=== PATIENT | male | born 1940 | race Two or more races ===

== ENCOUNTER 2024-06-20 19:47 | Inpatient (IN) | payer OTHER ==
[~2024-06-20] VITALS: Ht 170.2 cm; Wt 83.0 kg
[~2024-06-20 19:47] MED LIST: LOSA-533 PO
[2024-06-20 20:23] LABS: Basophils # (auto) 0 10 ^3/uL (0-0.2); Basophils % (auto) 0.7 % (0.0-2.0); Eosinophils # (auto) 0.3 10 ^3/uL (0-0.8); Eosinophils % (auto) 4.7 % (0.0-7.0); Hematocrit 39.9 % (41.0-53.0); Hemoglobin 13.7 g/dL (13.5-17.5); Lymphocytes % (auto) 14.4 % (10.0-50.0); Mean Corpuscular Hemoglobin 33.9 pg (28.0-32.0); Mean Corpuscular Hgb Conc. 34.4 g/dL (32.0-36.0); Mean Corpuscular Volume 98.7 fL (80.0-100.0); Monocytes # (auto) 0.6 10 ^3/uL (0-1.3); Monocytes % (auto) 9.1 % (0.0-12.0); Neutrophils # (auto) 4.8 10 ^3/uL (1.6-8.6); Neutrophils % (auto) 71.1 % (37.0-80.0); Nucleated Red Blood Cells % 0.1 %; Platelet Count (auto) 204 10^3/uL (140-450); Red Blood Cells 4.05 10^6/uL (4.5-5.90); Red Cell Distribution Width 13.1 % (11.8-14.3); White Blood Cell 6.8 10^3/uL (4.4-10.8)
--- NOTE | 2024-06-20 20:32 | DVH ---
CHEST RADIOGRAPH Indication:syncope Technique: Single frontal view of the chest was obtained Comparison: None FINDINGS: Lines and Tubes: None Lungs: No focal consolidation. Pleura: No effusion. No pneumothorax. Cardiomediastinal contours: Mild cardiomegaly. Bones: No acute osseous abnormality. IMPRESSION: No acute cardiopulmonary disease.
[2024-06-20 20:44] LABS: Alanine Aminotransferase 14 U/L (7-40); Albumin 4.4 g/dL (3.2-4.8); Alkaline Phosphatase 60 U/L (46-116); Anion Gap 7 (5-15); Aspartate Aminotransferase 10 U/L (13-40); BUN/Creatinine Ratio 8.1 (10.0-20.0); Bilirubin, Total 0.4 mg/dL (0.2-1.0); Blood Urea Nitrogen 17 mg/dL (9-23); Carbon Dioxide 23 mmol/L (20-31); Chloride 108 mmol/L (98-107); Glucose 103 mg/dL (74-106); Potassium 3.9 mmol/L (3.5-5.1); Sodium 138 mmol/L (136-145); Total Protein 6.7 g/dL (5.7-8.2)
[2024-06-20 20:55] LABS: Urine Bacteria None Seen /hpf (None Seen)
[2024-06-20 20:57] VITALS: PULSE 50; RESP 14; O2SAT 96
[2024-06-20 21:16] LABS: Urine Blood Negative /uL (Negative); Urine Clarity Clear (Clear); Urine Color Light-Yellow (Yellow); Urine Protein, UAD 2+ (Negative); Urine Specific Gravity 1.013 (1.001-1.035); Urine Urobilinogen Normal (Negative); Urine WBC <1 /hpf (0 - 3)
--- NOTE | 2024-06-20 22:05 | ED.PDOC ---
History of Present Illness HPI Comments 84-year-old male complaining of generalized weakness. Patient states he was in his garage when he he was working by his car and he bent down. States he had a hard time getting up due to feeling weak. Called EMS. EMS came out and states they noticed his heart rate was dropping into the 40s. Patient states typically his heart rate is in the 60s 70s. Patient denies any prior heart problems. Patient states feeling okay during the exam but does still feel mildly weak. No dizziness no headaches. Chief Complaint: General Weakness Time Seen by MD: 19:52 Reviewed Notes: Nurses Notes Allergies: Coded Allergies: NO KNOWN ALLERGIES (Unverified , 06/20/24) Information Source: Patient, Emergency Med Personnel Mode of Arrival: EMS Past Medical History PAST MEDICAL HISTORY: Denies Surgical History: Denies all surgeries Constitutional: denies: chills, diaphoresis, fatigue, fever, malaise, sweats, weakness, others EENTM: denies: blurred vision, double vision, ear bleeding, ear discharge, ear drainage, ear pain, ear ringing, eye pain, eye redness, hearing loss, mouth pain, mouth swelling, nasal discharge, nose bleeding, nose congestion, nose pain, photophobia, tearing, throat pain, throat swelling, voice changes, others Respiratory: denies: cough, hemoptysis, orthopnea, SOB at rest, shortness of breath, SOB with excertion, stridor, wheezing, others Cardiovascular: reports: irregular heart beat; denies: chest pain, dizzy spells, diaphoresis, Dyspnea on exertion, edema, left arm pain, lightheadedness, palpitations, PND, syncope, others Gastrointestinal: denies: abdomen distended, abdominal pain, blood streaked bowels, constipated, diarrhea, dysphagia, difficulty swallowing, hematemesis, melena, nausea, poor appetite, poor fluid intake, rectal bleeding, rectal pain, vomiting, others Genitourinary: denies: burning, dysuria, flank pain, frequency, hematuria, incontinence, penile discharge, penile sore, pain, testicle pain, testicle swelling, urgency, others Neurological: denies: dizziness, fainting, headache, left sided numbness, left sided weakness, numbness, paresthesia, pre-existing deficit, right sided numbness, right sided weakness, seizure, speech problems, tingling, tremors, weakness, others Musculoskeletal: denies: back pain, gout, joint pain, joint swelling, muscle pain, muscle stiffness, neck pain, others Integumetry: denies: bruises, change in color, change in hair/nails, dryness, laceration, lesions, lumps, rash, wounds, others Allergic/Immunocompromised: denies: Difficulty Healing, Frequent Infections, Hives, Itching, others Physical Exam General Appearance: No Apparent Distress, Normal HEENT: Normal ENT Inspection, Pharynx Normal, TMs Normal Neck: Full Range of Motion, Non-Tender, Normal, Normal Inspection Respiratory: Chest Non-Tender, Lungs Clear, No Accessory Muscle Use, No Respiratory Distress, Normal Breath Sounds Cardiovascular: No Edema, No JVD, No Murmur, No Gallop, Normal Peripheral Pulses, Regular Rate/Rhythm Breast Exam: Deferred Gastrointestinal: No Organomegaly, Non Tender, No Pulsatile Mass, Normal Bowel Sounds, Soft Genitalia: Deferred Pelvic: Deferred Rectal: Deferred Extremities: No calf tenderness, Normal capillary refill, Normal inspection, Normal range of motion, Non-tender, No pedal edema Musculoskeletal : Apperance: Normal Neurologic: Alert, concrete pointer II-XII nml as Tested, No Motor Deficits, Normal Affect, Normal Mood, No Sensory Deficits Cerebellar Function: Normal Reflexes: Normal Skin: Dry, Normal Color, Warm Lymphatic: No Adenopathy Was a procedure done? Was a procedure done?: No Differential Dx Considerations may include: Bradycardia, right bundle branch block, PA, PE, DVT, X-Ray, Labs, Meds, VS Vital Signs Date Time Temp Pulse Resp B/P (MAP) Pulse Ox O2 Delivery O2 Flow Rate FiO2 06/20/24 20:57 50 14 96 Room Air* 0 21 06/20/24 20:37 50 16 95 Room Air 06/20/24 20:36 98.1 50 16 140/62 (88) 95 98.1 06/20/24 19:55 52 06/20/24 19:52 98.4 54 16 150/73 (98) 97 Lab Test 06/20/24 20:55 06/20/24 20:53 06/20/24 20:03 Range/Units Urine Color Light-yellow Yellow Urine Clarity Clear Clear Urine pH 6.0 5.0-9.0 Urine Specific [place] 1.013 1.001-1.035 Urine Protein 2+ H Negative Urine Ketones Negative Negative Urine Blood Negative Negative /uL Urine Nitrite Negative Negative Urine Bilirubin Negative Negative Urine Urobilinogen Normal Negative mg/dL Urine Leukocyte Esterase Negative Negative /uL Urine RBC 1 0 - 3 /hpf Urine WBC <1 0 - 3 /hpf Urine Squamous Epithelial Cells None seen <5 /hpf Urine Bacteria None seen None Seen /hpf Urine Glucose Normal Normal mg/dL Troponin I High Sensitivity 10 10 </=54 ng/L White Blood Count 6.8 4.4-10.8 10^3/uL Red Blood Count 4.05 L 4.5-5.90 10^6/uL Hemoglobin 13.7 13.5-17.5 g/dL Hematocrit 39.9 L 41.0-53.0 % Mean Corpuscular Volume 98.7 80.0-100.0 fL Mean Corpuscular Hemoglobin 33.9 H 28.0-32.0 pg Mean Corpuscular Hemoglobin Concent 34.4 32.0-36.0 g/dL Red Cell Distribution Width 13.1 11.8-14.3 % Platelet Count 204 140-450 10^3/uL Mean Platelet Volume 6.9 6.9-10.8 fL Neutrophils (%) (Auto) 71.1 37.0-80.0 % Lymphocytes (%) (Auto) 14.4 10.0-50.0 % Monocytes (%) (Auto) 9.1 0.0-12.0 % Eosinophils (%) (Auto) 4.7 0.0-7.0 % Basophils (%) (Auto) 0.7 0.0-2.0 % Neutrophils # (Auto) 4.8 1.6-8.6 10 ^3/uL Lymphocytes # (Auto) 1.0 0.4-5.4 10 ^3/uL Monocytes # (Auto) 0.6 0-1.3 10 ^3/uL Eosinophils # (Auto) 0.3 0-0.8 10 ^3/uL Basophils # (Auto) 0 0-0.2 10 ^3/uL Nucleated Red Blood Cells 0.1 % Sodium Level 138 136-145 mmol/L Potassium Level 3.9 3.5-5.1 mmol/L Chloride Level 108 H 98-107 mmol/L Carbon Dioxide Level 23 20-31 mmol/L Anion Gap 7 5-15 Blood Urea Nitrogen 17 9-23 mg/dL Creatinine 2.09 H 0.700-1.30 mg/dL Glomerular Filtration Rate Calc 31 >90 mL/min BUN/Creatinine Ratio 8.1 L 10.0-20.0 Serum Glucose 103 74-106 mg/dL Calcium Level 10.0 8.7-10.4 mg/dL Total Bilirubin 0.4 0.2-1.0 mg/dL Aspartate Amino Transferase (AST) 10 L 13-40 U/L Alanine Aminotransferase (ALT) 14 7-40 U/L Alkaline Phosphatase 60 46-116 U/L Total Protein 6.7 5.7-8.2 g/dL Albumin 4.4 3.2-4.8 g/dL X-Ray, Labs, Meds, VS Comment Patient will be admitted for bradycardia Recommend cardiology consult in the morning Imaging: X-rays and CT scans were reviewed and interpreted by this provider, imaging shows no fractures and no pathological disease. Pending radiology review. Laboratory: Labs reviewed and interpreted by this provider. No significant abnormalities noted. Patient has prior medical visits reviewed. Med reconciliation performed Vital signs reviewed Time of 1ST Reevaluation: 22:31 Reevaluation 1ST: Improved Patient Education/Counseling: Diagnosis, Treatment Family Education/Counseling: No Family Present Departure 1 Departure Time of Disposition: 22:30 Impression: Primary Impression: Bradycardia Additional Impression: Generalized weakness Disposition: ADMITTED INPATIENT Condition: Stable Discharged With: Self Critical Care Note Critical Care Time?: No Stability Stability form required: No Heart Score Heart Score: Heart Score Response (Comments) Value History Slightly Suspicious 0 EKG Normal 0 Age >65 2 Risk Factors No known risk factors 0 Troponin Normal limit 0 Total 2 ANTHONY MARTÍNEZP Jun 20, 2024 22:05
[2024-06-20] MEDS ORDERED: NITROGLYCERIN 0.4 MG SL TAB SL PRN (23:00)
[2024-06-20] MEDS ORDERED: ONDANSETRON HCL 4 MG/2 ML VIAL IV PRN (23:00)
[2024-06-20] MEDS ORDERED: ACETAMINOPHEN 325 MG TAB PO PRN (23:00)
[2024-06-20] MEDS ORDERED: MORPHINE SULFATE INJ 2 MG/ml SYRG IV PRN (23:00)
[2024-06-20] MEDS: SODIUM CHLORIDE 0.9% 1,000 ML IV ONE (23:15)
[2024-06-20] MEDS: ENOXAPARIN SOD 30 MG/0.3 ML SYRINGE SC SCH (23:15)
--- NOTE | 2024-06-20 23:40 | DVHHPRES ---
History of Present Illness Resident Creating Document: GOLD SANTIAGO RESIDENT History of Present Illness This is a 84-year-old male with past medical history of hypertension, hyperlipidemia, CKD presented to the ED with a chief complaint of generalized weakness and bradycardia. Patient states he was in his garage when he he was working by his car and he bent down and had a hard time getting up due to feeling weak. Called EMS. EMS came out and states they noticed his heart rate was dropping into the 30s. Patient states typically his heart rate is in the 60s and 70s. Patient denies any chest pain, shortness of breath, dizziness, diaphoresis, abdominal pain, nausea, vomiting or any change in bowel or bladder habit. Patient denies any prior heart problems. PCP: Dr. 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 Review of Systems Constitutional: Yes: Weakness; No: Fever, Chills, Sweats, Malaise, Other Eyes: No: Pain, Vision change, Conjunctivae inflammation, Eyelid inflammation, Other, Redness ENT: No: Ear pain, Ear discharge, Nose pain, Nose discharge, Nose congestion, Mouth pain, Mouth swelling, Throat pain, Throat swelling, Other Respiratory: No: Cough, Dry, Shortness of breath, SOB with excertion, Wheezing, Hemoptysis, Pleuritic Pain, Sputum, Wheezing, Other Cardiovascular: Edema, Lt Headedness; No: Chest Pain, Palpitations, Orthopnea, Paroxysmal Noc. Dyspnea, Other Gastrointestinal: No: Nausea, Vomiting, Abdominal Pain, Diarrhea, Constipation, Melena, Hematochezia, Other Genitourinary: No Dysuria, No Frequency, No Incontinence, No Hematuria, No Retention, No Other Musculoskeletal: No: other, neck pain, shoulder pain, arm pain, back pain, hand pain, leg pain, foot pain Skin: No: Rash, Lesions, Jaundice, Bruising, Other Neurological: No: Weakness, Numbness, Incoordination, Change in speech, Confusion, Seizures, Other Allergies: Coded Allergies: NO KNOWN ALLERGIES (Unverified , 06/20/24) Medications Current Medications Medications Dose Ordered Sig/Bhupinder Route Start Time Stop Time Status Last Admin Dose Admin Sodium Chloride 10 ml Q8HR IV 06/21/24 06:00 Acetaminophen 325 mg Q4HP PRN PO 06/20/24 23:00 Ondansetron HCl 4 mg Q4HP PRN IV 06/20/24 23:00 Nitroglycerin 0.4 mg Q5MINP PRN SL 06/20/24 23:00 Morphine Sulfate 2 mg Q30M PRN IV 06/20/24 23:00 Enoxaparin Sodium 40 mg DAILY SC 06/20/24 23:15 Exam Vital Signs Vital Signs Date Time Temp Pulse Resp B/P (MAP) Pulse Ox O2 Delivery O2 Flow Rate FiO2 06/20/24 20:57 50 14 96 Room Air* 0 21 06/20/24 20:36 98.1 140/62 (88) 98.1 General Appearance: Alert, Oriented X3, Cooperative, mild distress HEENT: Atraumatic, PERRLA, EOMI, Mucous membr. moist/pink Respiratory: Clear to auscultation, Normal air movement Cardiovascular: Regular rate, Normal S1, Normal S2, No murmurs Abdominal: Normal bowel sounds, Soft, No tenderness, No hepatospenomegaly, No masses Extremities: No clubbing, No cyanosis, Normal pulses, No tenderness/swelling, Other (Bilateral pedal edema +) Skin: No rashes, No breakdown, No significant lesion Neuro: Normal gait, Normal speech, Strength at 5/5 X4 ext, Normal tone, Sensation intact, Other (grossly intact cranial nerves) Psych/Mental Status: Mental status NL, Mood NL Labs/Xrays Labs Test 06/20/24 20:55 06/20/24 20:53 06/20/24 20:03 Range/Units Urine Color Light-yellow Yellow Urine Clarity Clear Clear Urine pH 6.0 5.0-9.0 Urine Specific [place] 1.013 1.001-1.035 Urine Protein 2+ H Negative Urine Ketones Negative Negative Urine Blood Negative Negative /uL Urine Nitrite Negative Negative Urine Bilirubin Negative Negative Urine Urobilinogen Normal Negative mg/dL Urine Leukocyte Esterase Negative Negative /uL Urine RBC 1 0 - 3 /hpf Urine WBC <1 0 - 3 /hpf Urine Squamous Epithelial Cells None seen <5 /hpf Urine Bacteria None seen None Seen /hpf Urine Glucose Normal Normal mg/dL Troponin I High Sensitivity 10 </=54 ng/L White Blood Count 6.8 4.4-10.8 10^3/uL Red Blood Count 4.05 L 4.5-5.90 10^6/uL Hemoglobin 13.7 13.5-17.5 g/dL Hematocrit 39.9 L 41.0-53.0 % Mean Corpuscular Volume 98.7 80.0-100.0 fL Mean Corpuscular Hemoglobin 33.9 H 28.0-32.0 pg Mean Corpuscular Hemoglobin Concent 34.4 32.0-36.0 g/dL Red Cell Distribution Width 13.1 11.8-14.3 % Platelet Count 204 140-450 10^3/uL Mean Platelet Volume 6.9 6.9-10.8 fL Neutrophils (%) (Auto) 71.1 37.0-80.0 % Lymphocytes (%) (Auto) 14.4 10.0-50.0 % Monocytes (%) (Auto) 9.1 0.0-12.0 % Eosinophils (%) (Auto) 4.7 0.0-7.0 % Basophils (%) (Auto) 0.7 0.0-2.0 % Neutrophils # (Auto) 4.8 1.6-8.6 10 ^3/uL Lymphocytes # (Auto) 1.0 0.4-5.4 10 ^3/uL Monocytes # (Auto) 0.6 0-1.3 10 ^3/uL Eosinophils # (Auto) 0.3 0-0.8 10 ^3/uL Basophils # (Auto) 0 0-0.2 10 ^3/uL Nucleated Red Blood Cells 0.1 % Sodium Level 138 136-145 mmol/L Potassium Level 3.9 3.5-5.1 mmol/L Chloride Level 108 H 98-107 mmol/L Carbon Dioxide Level 23 20-31 mmol/L Anion Gap 7 5-15 Blood Urea Nitrogen 17 9-23 mg/dL Creatinine 2.09 H 0.700-1.30 mg/dL Glomerular Filtration Rate Calc 31 >90 mL/min BUN/Creatinine Ratio 8.1 L 10.0-20.0 Serum Glucose 103 74-106 mg/dL Calcium Level 10.0 8.7-10.4 mg/dL Total Bilirubin 0.4 0.2-1.0 mg/dL Aspartate Amino Transferase (AST) 10 L 13-40 U/L Alanine Aminotransferase (ALT) 14 7-40 U/L Alkaline Phosphatase 60 46-116 U/L Total Protein 6.7 5.7-8.2 g/dL Albumin 4.4 3.2-4.8 g/dL Assessment/Plan Assessment/Plan Assessment and plan: # Symptomatic bradycardia - Patient's heart rate was dropped to 30 and complaining of weakness and lightheadedness - EKG revealed sinus bradycardia troponins trends are negative - Avoid all Av shawn blocking agents. - Ordered echo, TSH, magnesium - Consulted cardiology # CKD stage 3 - Creatinine is 2.09 and GFR is 31 - patient is following with [facility] in [place] - Strict I/O - Avoid nephrotoxic drugs. # Hypertensive heart disease - IV hydralazine 10 mg q.6 p.r.n. # DVT prophylaxis - ordered Doppler scan of the lower limb - Lovenox 40 mg sc daily. Goal of care discussed with the patient for more than 20 minutes full code Plan of treatment discussed with Dr. Simon Plan discussed with: Patient, Other My Orders Orders - GOLD SANTIAGO RESIDENT Procedure Category Date Status Time Admit ADMIT 06/20/24 Transmitted 22:57 Allergies MAGDA 06/20/24 In Process 22:57 Code Status CODE 06/20/24 Transmitted 22:57 Sodium Chloride Lock PHA 06/21/24 In Process (Saline Lock Ns) 06:00 Acetaminophen Tablet PHA 06/20/24 In Process (Tylenol Tablet) 23:00 Ondansetron Hcl PHA 06/20/24 In Process (Zofran) 23:00 Complete Blood Count LAB 06/21/24 Verified 04:00 Comprehensive LAB 06/21/24 Verified Metabolic Panel 04:00 Echo 2d Mode Cardiac US 06/20/24 Logged DOP 22:57 Nitroglycerin PHA 06/20/24 In Process Sublingual (Ntrostat 23:00 Morphine Sulfate PHA 06/20/24 In Process Injection 23:00 Oxygen By Nasal RT 06/20/24 Transmitted Cannula 22:57 Stat Ekg For Chest MAGDA 06/20/24 In Process Pain 22:57 Notify Of Changes MAGDA 06/20/24 In Process From Base 22:57 Executive Associate For MAGDA 06/20/24 In Process 24 Hours 22:57 Emergency Dysrhythmia MAGDA 10/22/24 In Process Protocol 22:57 Rhythm Strips Once MAGDA 06/20/24 In Process Every Shift 22:57 Enoxaparin Sodium PHA 06/20/24 In Process (Lovenox) 23:15 Thyroid Stimulating LAB 06/20/24 In Process Hormone 23:14 Magnesium LAB 06/20/24 In Process 23:14 Hemoglobin A1c LAB 06/20/24 In Process 23:14 Npo After Midnight DIET 06/21/24 Transmitted Breakfast * Cardiology Consult CONS 06/20/24 Transmitted 23:14 Sodium Chloride 0.9% PHA 06/20/24 In Process 23:15 Date of Service: Jun 20, 2024 Billing Provider: LATOYA SIMON MD Common Visit Codes: 04164-TCJYANS INP/OBS CARE (HIGH) Secondary Visit Codes: 72956-KPAXDZQM CARE PLAN 30 MINUTES GOLD SANTIAGO RESIDENT Jun 20, 2024 23:40 LATOYA SIMON MD Jun 21, 2024 09:18
[2024-06-21] VITALS (9 sets, daily range): BP systolic 147–165; BP diastolic 59–83; PULSE 47–64; RESP 17–20; TEMP 97.6–98.6; O2SAT 94–100
--- NOTE | 2024-06-21 00:30 | DVH ---
CLINICAL HISTORY: To rule out DVT bilateral lower extremity swelling TECHNIQUE: Color and duplex doppler imaging of the bilateral lower extremity veins was performed. Ves yuval compression if possible was also performed. WID: COMPARISON: None FINDINGS: Right Lower Extremity: Right common femoral vein: Normal compressibility and flow. Right femoral vein: Normal compressibility and flow. Right popliteal vein: Normal compressibility and flow. Proximal calf veins are normally compressible. Left Lower Extremity: Left common femoral vein: Normal compressibility and flow. Left femoral vein: Normal compressibility and flow. Left popliteal vein: Normal compressibility and flow. Proximal calf veins are normally compressible. IMPRESSION: NO SONOGRAPHIC EVIDENCE FOR DEEP VENOUS THROMBOSIS IN THE BILATERAL LOWER EXTREMITY VEINS.
[2024-06-21] MEDS: SODIUM CHLOR 0.9% PF (SALINE LOCK) 10ML VIAL/SYR IV SCH (05:30)
[2024-06-21 07:27] LABS: Basophils # (auto) 0 10 ^3/uL (0-0.2); Basophils % (auto) 0.7 % (0.0-2.0); Eosinophils # (auto) 0.4 10 ^3/uL (0-0.8); Eosinophils % (auto) 5.7 % (0.0-7.0); Hematocrit 38.8 % (41.0-53.0); Hemoglobin 13.6 g/dL (13.5-17.5); Lymphocytes # (auto) 1.4 10 ^3/uL (0.4-5.4); Lymphocytes % (auto) 22.5 % (10.0-50.0); Mean Corpuscular Hemoglobin 34.3 pg (28.0-32.0); Mean Corpuscular Hgb Conc. 35.1 g/dL (32.0-36.0); Mean Corpuscular Volume 97.9 fL (80.0-100.0); Monocytes # (auto) 0.5 10 ^3/uL (0-1.3); Monocytes % (auto) 8.7 % (0.0-12.0); Neutrophils # (auto) 3.8 10 ^3/uL (1.6-8.6); Neutrophils % (auto) 62.4 % (37.0-80.0); Platelet Count (auto) 205 10^3/uL (140-450); Red Blood Cells 3.97 10^6/uL (4.5-5.90); White Blood Cell 6.1 10^3/uL (4.4-10.8)
[2024-06-21 07:44] LABS: Alanine Aminotransferase 12 U/L (7-40); Albumin 4.1 g/dL (3.2-4.8); Alkaline Phosphatase 59 U/L (46-116); Anion Gap 8 (5-15); Aspartate Aminotransferase 10 U/L (13-40); BUN/Creatinine Ratio 8.4 (10.0-20.0); Blood Urea Nitrogen 16 mg/dL (9-23); Calcium 9.9 mg/dL (8.7-10.4); Carbon Dioxide 24 mmol/L (20-31); Chloride 107 mmol/L (98-107); Glucose 91 mg/dL (74-106); Potassium 4.3 mmol/L (3.5-5.1); Sodium 139 mmol/L (136-145)
[2024-06-21 07:45] LABS: Bilirubin, Total 0.6 mg/dL (0.2-1.0); Total Protein 6.4 g/dL (5.7-8.2)
--- NOTE | 2024-06-21 09:34 | DVH ---
RENAL ULTRASOUND CLINICAL HISTORY: VERONICA TECHNIQUE: Multiple ultrasound images of the kidneys and bladder were obtained. COMPARISON: None FINDINGS: The right kidney measures 11.5 cm in length. The left kidney measures 10.3 cm. The kidneys demonstrat e appropriate echotexture. There are scattered small renal cysts, the largest in the right upper pole measuring 1.7 cm. The largest in the left kidneys in the upper pole measuring 1.6 cm. There is no sonographic evidence of nephrolithiasis or hydronephrosis. The bladder appears within normal limits without significant post void residual. The prostate gland m easures 4.4 x 4.0 x 4.0 cm. IMPRESSION: 1. There is no sonographic evidence of nephrolithiasis or hydronephrosis. 2. Scattered small renal cysts measuring up to 1.7 cm. HS:Y
[2024-06-21] MEDS ORDERED: ENOXAPARIN SOD 30 MG/0.3 ML SYRINGE SC SCH (10:00)
[2024-06-21 10:52] LABS: Blood Alcohol < 3.0 mg/dL (<10)
[2024-06-21 10:53] LABS: Magnesium 1.9 mg/dL (1.6-2.6)
[2024-06-21 10:54] LABS: Phosphorus 3.5 mg/dL (2.4-5.1)
[2024-06-21] MEDS: hydrALAZINE HCL 20 MG/ML VL IV PRN (11:20)
--- NOTE | 2024-06-21 11:37 | ECG ---
[facility] Test Date: 2024-06-20 Test Time: 19:55:10 Pat Name: ADINA CANALES Department: ER Room: 0278T A Gender: M Director Music: PIPPA : 1940 Requested By: ANTHONY MARTÍNEZ Order Number: [id number] Reading MD: Tello Hernandez Measurements Intervals [place] Rate: 52 P: 60 NM: 179 QRS: 33 QRSD: 99 T: -2 QT: 448 QTc: 417 Interpretive Statements Sinus rhythm Borderline T abnormalities, inferior leads Electronically Signed On 06-22-2024 13:11:43 PDT by Tello Hernandez Please click the below link to view image of tracing.
--- NOTE | 2024-06-21 13:23 | DVHSR ---
APPROVED REPORT EXAM: Two-dimensional and M-mode echocardiogram with Doppler and color Doppler. Blood Pressure: 161/83 mmHg INDICATION Bradycardia RISK FACTORS Height: 67, Weight: 173 DIMENSIONS LVDd4.7 (3.8-5.7cm)LA (2D)4.6 (1.9-4.0cm)Aortic Root4.0 (2.0-3.7cm) LVDs3.2 (2.5-4.0cm)LA (MM) (1.9-4.0cm)Aortic Cusp Exc0.8 (1.5-2.0cm) EF (%) 60.0 (55-70%)Rt. Atrium4.0 (1.9-4.0cm)Asc. Aorta3.9 cm IVSd1.4 (0.7-1.1cm)RV (D) (1.8-2.4cm) PWd1.4 (0.7-1.1cm) Mitral Valve MitralMitral Stenosis E wave0.94m/sMV Mean GR.mmHg A wave0.99m/sMV Peak GR.129mmHg E/A ratio0.92D MVAcm2 DECEL [id number] 1/2 Timems Aortic Valve Aortic ValveAortic Stenosis V11.10m/Madhav Mean GR.26mmHg V23.53m/Madhav Peak GR.50mmHg LVOT Diameter1.9 (1.8-2.4cm)Doppler AVA0.88cm2 Pulmonic Valve V21.03m/s Tricuspid Valve TR Velocity3.12m/s [id number] Conclusion Normal left ventricular size and dimension. Normal left ventricular systolic function estimated ejec tion fraction of 55%. There is a grade 1 diastolic dysfunction. Normal right ventricular size and dimension. Normal right ventricular systolic function. There is a moderate right ventricular systolic pressure elevation at 45 mm of mercury. Normal biatrial size and dimension. The aortic valve is thickened and calcific there is moderate aortic valve stenosis with a peak gradie nt of54 mean gradient of24 mm of mercury. The mitral valve is mildly thickened there is mild mitral annular calcification. There is mild tricuspid valve regurgitation. The pulmonary valve is grossly normal. No pericardial effusion.
--- NOTE | 2024-06-21 13:52 | DVHINCON2 ---
Date Seen: Jun 21, [address] Sood Reason for Consultation Symptomatic bradycardia History of Present Illness Bebeto Rios is a 84-year-old male patient who presents to the ED via EMS with complaint of generalized weakness which started the day of his admission, personal of EMS registered heart rate at 30s per patient. 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 Drinks every day (one mixed drink with vodka). Denies current tobacco and other drug abuse Allergies: Denies Home medication: Aspirin 81 mg p.o. daily, amlodipine 10 mg p.o. daily, pantoprazole 40 mg p.o. daily nebivolol 5 mg p.o. daily, simvastatin 20 mg p.o. daily, allopurinol 100 mg p.o. daily, multivitamins. PCP: Dr. Smtih Patient seen and examined at bedside. Currently has no new complaints. Complementary workup: EKG: Sinus bradycardia at 50 beats per minute, rest within normal limits Chest x-ray: No acute cardiopulmonary disease Echocardiogram: LVEF 55%, grade 1 diastolic dysfunction, RVSP 45 mmHg, aortic valve is thickened and calcified, there is moderate aortic valve stenosis with peak gradient 54 mmHg and mean gradient of 24 mmHg Telemetry: Sinus bradycardia Past Medical History Per HPI Past Surgical History Per HPI Family History: Patient reports no known family medical history. Family History Per HPI Social History Per HPI Allergies: Coded Allergies: NO KNOWN ALLERGIES (Unverified , 06/20/24) Current Medications Current Medications Medications (Trade) Dose Ordered Sig/Bhupinder Route PRN Reason Start Time Stop Time Status Last Admin Sodium Chloride (Saline Lock Ns) 10 ml Q8HR IV 06/21/24 06:00 06/21/24 05:30 Acetaminophen (Tylenol Tablet) 325 mg Q4HP PRN PO MILD PAIN (1-3 PAIN SCALE) 06/20/24 23:00 Ondansetron HCl (Zofran) 4 mg Q4HP PRN IV NAUSEA / VOMITING 06/20/24 23:00 06/21/24 11:28 DC Enoxaparin Sodium (Lovenox) 30 mg DAILY SC 06/21/24 10:00 06/20/24 23:22 DC Nitroglycerin (Ntrostat Sublingual) 0.4 mg Q5MINP PRN SL FOR CHEST PAIN 06/20/24 23:00 06/21/24 11:28 DC Morphine Sulfate 2 mg Q30M PRN IV FOR CHEST PAIN 06/20/24 23:00 06/21/24 11:28 DC Enoxaparin Sodium (Lovenox) 40 mg DAILY SC 06/20/24 23:15 06/20/24 23:15 Hydralazine HCl (Apresoline Injection) 10 mg Q6HP PRN IV SBP>150 06/21/24 00:00 06/21/24 11:20 Review of Systems Per HPI Vital Signs Vital Signs Date Time Temp Pulse Resp B/P (MAP) Pulse Ox O2 Delivery O2 Flow Rate FiO2 06/21/24 12:30 97.8 55 19 155/59 (91) 94 97.8 06/21/24 01:53 Room Air* 0 21 Physical Exam Patient lying in bed, in no acute distress General: Lucid, afebrile, mucosae are moist Cardiovascular: Normal S1 and S2. Objective systolic murmur best heard in aortic fossae intensity 2/6. No gallops or rubs Respiratory: Normal ventilation mechanics. Clear lung sounds on auscultation Abdomen: Soft, nontender, no organomegaly, normal bowel sounds MSK/skin: Mobilizes 4 limbs. Skin is dry and warm Neurological: Oriented in 3 spheres. No motor no sensitive deficits. Pupils are isocoric and reactive Labs/Diagnostic Data Labs Test 06/21/24 06:13 06/20/24 20:55 06/20/24 20:53 06/20/24 20:03 Range/Units White Blood Count 6.1 4.4-10.8 10^3/uL Red Blood Count 3.97 L 4.5-5.90 10^6/uL Hemoglobin 13.6 13.5-17.5 g/dL Hematocrit 38.8 L 41.0-53.0 % Mean Corpuscular Volume 97.9 80.0-100.0 fL Mean Corpuscular Hemoglobin 34.3 H 28.0-32.0 pg Mean Corpuscular Hemoglobin Concent 35.1 32.0-36.0 g/dL Red Cell Distribution Width 13.0 11.8-14.3 % Platelet Count 205 140-450 10^3/uL Mean Platelet Volume 7.3 6.9-10.8 fL Neutrophils (%) (Auto) 62.4 37.0-80.0 % Lymphocytes (%) (Auto) 22.5 10.0-50.0 % Monocytes (%) (Auto) 8.7 0.0-12.0 % Eosinophils (%) (Auto) 5.7 0.0-7.0 % Basophils (%) (Auto) 0.7 0.0-2.0 % Neutrophils # (Auto) 3.8 1.6-8.6 10 ^3/uL Lymphocytes # (Auto) 1.4 0.4-5.4 10 ^3/uL Monocytes # (Auto) 0.5 0-1.3 10 ^3/uL Eosinophils # (Auto) 0.4 0-0.8 10 ^3/uL Basophils # (Auto) 0 0-0.2 10 ^3/uL Nucleated Red Blood Cells 0.0 % Sodium Level 139 136-145 mmol/L Potassium Level 4.3 3.5-5.1 mmol/L Chloride Level 107 98-107 mmol/L Carbon Dioxide Level 24 20-31 mmol/L Anion Gap 8 5-15 Blood Urea Nitrogen 16 9-23 mg/dL Creatinine 1.90 H 0.700-1.30 mg/dL Glomerular Filtration Rate Calc 35 >90 mL/min BUN/Creatinine Ratio 8.4 L 10.0-20.0 Serum Glucose 91 74-106 mg/dL Calcium Level 9.9 8.7-10.4 mg/dL Phosphorus Level 3.5 2.4-5.1 mg/dL Magnesium Level 1.9 1.6-2.6 mg/dL Total Bilirubin 0.6 0.2-1.0 mg/dL Aspartate Amino Transferase (AST) 10 L 13-40 U/L Alanine Aminotransferase (ALT) 12 7-40 U/L Alkaline Phosphatase 59 46-116 U/L B-Type Natriuretic Peptide 168.47 0-100 pg/mL Total Protein 6.4 5.7-8.2 g/dL Albumin 4.1 3.2-4.8 g/dL Vitamin B12 Level 1456 H 211-911 pg/mL Vitamin D 25-Hydroxy 66.3 30.0-100 ng/mL Plasma/Serum Blood Alcohol < 3.0 <10 mg/dL Urine Color Light-yellow Yellow Urine Clarity Clear Clear Urine pH 6.0 5.0-9.0 Urine Specific [place] 1.013 1.001-1.035 Urine Protein 2+ H Negative Urine Ketones Negative Negative Urine Blood Negative Negative /uL Urine Nitrite Negative Negative Urine Bilirubin Negative Negative Urine Urobilinogen Normal Negative mg/dL Urine Leukocyte Esterase Negative Negative /uL Urine RBC 1 0 - 3 /hpf Urine WBC <1 0 - 3 /hpf Urine Squamous Epithelial Cells None seen <5 /hpf Urine Bacteria None seen None Seen /hpf Urine Glucose Normal Normal mg/dL Troponin I High Sensitivity 10 </=54 ng/L Thyroid Stimulating Hormone (TSH) 2.49 0.55-4.78 uIU/mL Hemoglobin A1c 5.1 <5.7 % A1C Assessment Symptomatic bradycardia Moderate aortic stenosis CKD stage 3 Hypertension Dyslipidemia Plan/Recommendation Patient should continue with telemetry status, we will evaluate presence of arrhythmias may require pacemaker placement. Currently on telemetry only presented episodes of sinus bradycardia at 50 beats per minute. Avoid negative chronotropic medication. Patient will also Nebivolol at home, we will most likely have to discontinue beta-lane Avoid nephrotoxic medication On hydralazine for blood pressure control Discussed plan with Dr. Topete, patient, family and nurses: We will keep patient on telemetry for at least 24 hours more and evaluate presence of Fritz arrhythmias that require pacemaker placement, currently only presented sinus bradycardia. Avoid negative chronotropic medication. Plan discussed with: Patient, Spouse, Other (Nurses) Date of Service: Jun 21, 2024 Billing Provider: JAYANT TOPETE MD Cardiology Common Codes: [id number] INP/OBS CARE (High), [id number] CARE 30-74 MIN STANISLAW BLUM RESIDENT Jun 21, 2024 13:52
[2024-06-21] MEDS ORDERED: ASPI-543 PO (14:25)
[2024-06-21] MEDS ORDERED: SIMV20TA20 PO (14:25)
[2024-06-21] MEDS ORDERED: NEBI10TA12 PO (14:25)
[2024-06-21] MEDS ORDERED: SODI650T PO (14:25)
[2024-06-21] MEDS ORDERED: PANT40TA2 PO (14:25)
[2024-06-21] MEDS ORDERED: AMLO1TAB22 PO (14:25)
--- NOTE | 2024-06-21 15:10 | DVHPNRES ---
Progress Note Date Seen: Jun 21, 2024 Resident Creating Document: YUKI PEARL KERRIE Has the PT tested + for MRSA If YES, has PT been informed?: No Medical Necessity Reason Pt with a Central, PICC or Fol: No Subjective Review of Systems This is a 84-year-old male with past medical history of hypertension, hyperlipidemia, CKD presented to the ED with a chief complaint of generalized weakness. Patient states he was in his garage, was working by his car and had a hard time getting up due to feeling weak. Called EMS. EMS came out and states they noticed his heart rate was dropping into the 30s. Patient states typically his heart rate is in the 60s. Patient denies any chest pain, shortness of breath, dizziness, diaphoresis, abdominal pain, nausea, vomiting or any change in bowel or bladder habit. PCP: Dr. Smith Technician Terminal And Repeater: Dr. 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 Patient is feeling better since admission and currently has no complaints. Patient reports: No new complaints, Feels better Changes from previous H/P or p: Changes Objective vital signs Vital Sign Date Time Temp Pulse Resp B/P (MAP) Pulse Ox O2 Delivery O2 Flow Rate FiO2 06/21/24 12:30 97.8 55 19 155/59 (91) 94 97.8 06/21/24 08:00 Room Air* 0 21 Total Intake and Output 06/20/24 06/20/24 06/21/24 15:00 23:00 07:00 Intake Total 150 ml Balance 150 ml medications Current Medications Medications Dose Ordered Sig/Bhupinder Route Start Time Stop Time Status Last Admin Dose Admin Sodium Chloride 10 ml Q8HR IV 06/21/24 06:00 06/21/24 05:30 10 ML Acetaminophen 325 mg Q4HP PRN PO 06/20/24 23:00 Enoxaparin Sodium 40 mg DAILY SC 06/20/24 23:15 06/20/24 23:15 40 MG Hydralazine HCl 10 mg Q6HP PRN IV 06/21/24 00:00 06/21/24 11:20 10 MG Examination General Appearance: An elderly male lying comfortably on the bed, Alert, Oriented X3, Cooperative, No acute distress HEENT: Atraumatic, PERRLA, EOMI, Mucous membrane moist/pink Respiratory: Clear to auscultation, Normal air movement Cardiovascular: Regular rate, Normal S1, Normal S2, pansystolic murmur more on the aortic area increased with expiration Abdominal: Normal bowel sounds, Soft, No tenderness, No hepatospenomegaly, No masses Extremities: Bilateral grade 1 pedal edema Skin: No rashes, No breakdown, No significant lesion laboratory and microbiology Laboratory Tests 06/21/24 06:13 Test 06/21/24 06:13 Range/Units Serum Glucose 91 74-106 mg/dL Labs and/or images reviewed: Labs reviewed by me, Image(s) reviewed by me Problem List/Assessment/Plan Problem List/Assessment/Plan Symptomatic bradycardia EKG reviewed, shows sinus bradycardia, no significant ST or T-wave changes Discontinue nebivolol Cardiology on the board, recommended telemetry for evaluation of arrhythmia and possible pacemaker placement Hypertensive urgency Troponin within normal limits Continue home medication IV hydralazine 10 p.r.n. Acute on chronic diastolic heart failure Chest x-ray shows cephalization of pulmonary vessels Echo shows LVEF 55% with grade 1 diastolic dysfunction Check BNP Hyperlipidemia Continue simvastatin 40 mg Moderate aortic stenosis Echo shows, aortic valve is thickened and calcified, there is moderate aortic valve stenosis with peak gradient 54 mmHg and mean gradient of 24 mmHg VERONICA on CKD (grade 3 per patient), likely hemodynamic mediated Improving Continue sodium bicarbonate Hyperchloremia Monitoring DVT prophylaxis Lovenox Code status Full code Case discussed with Dr. Simon Plan discussed with: Patient, Other (Girlfriend and RN) My Orders My Orders Orders - YUKI PEARL RESDIMICHAEL Procedure Category Date Status Time Kidney US 06/21/24 Resulted 08:29 Date of Service: Jun 21, 2024 Billing Provider: LATOYA SIMON MD Common Visit Codes: [id number] INP/OBS CARE(HIGH) Secondary Visit Codes: [id number] CARE PLAN 30 MINUTES YUKI PEARL Jun 21, 2024 15:10 LATOYA SIMON MD Jun 21, 2024 19:00
[2024-06-21 15:28] LABS: COVID19 ANTIGEN SOFIA FIA NEGATIVE (NEGATIVE); Rapid Influenza A Negative (Negative); Rapid Influenza B Negative (Negative)
[2024-06-21] MEDS: SODIUM BICARBONATE 650 MG TAB PO SCH (22:03)
[2024-06-22] VITALS (7 sets, daily range): BP systolic 99–169; BP diastolic 64–74; PULSE 41–62; RESP 15–18; TEMP 97.4–98.2; O2SAT 95–97
[2024-06-22 05:29] LABS: Anion Gap 8 (5-15); Carbon Dioxide 24 mmol/L (20-31); Chloride 107 mmol/L (98-107); Potassium 4.2 mmol/L (3.5-5.1); Sodium 139 mmol/L (136-145)
[2024-06-22 05:30] LABS: Calcium 9.8 mg/dL (8.7-10.4)
[2024-06-22 05:35] LABS: BUN/Creatinine Ratio 9.2 (10.0-20.0); Blood Urea Nitrogen 18 mg/dL (9-23); Glucose 99 mg/dL (74-106)
[2024-06-22] MEDS: PANTOPRAZOLE 40 MG TAB PO SCH (09:18)
[2024-06-22] MEDS: ASPirin-EC 81 mg tab PO SCH (09:18)
[2024-06-22] MEDS: ATORVASTATIN 20 MG TAB PO SCH (09:18)
[2024-06-22] MEDS: amLODIPine BESYLATE 5 MG TAB PO SCH (09:18)
[2024-06-22] MEDS ORDERED: PATIENTS OWN MEDICATION (Simvastatin 20 MG) PO SCH (10:00)
--- NOTE | 2024-06-22 10:09 | DVHPNRES ---
Progress Note Date Seen: Jun 22, 2024 Resident Creating Document: STANISLAW BLUM RESIDENT Has the PT tested + for MRSA If YES, has PT been informed?: No Medical Necessity Reason Pt with a Central, PICC or Fol: No Subjective Review of Systems Bebeto Rios is a 84-year-old male patient who presents to the ED via EMS with complaint of generalized weakness which started the day of his admission, personal of EMS registered heart rate at 30s per patient. 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 Drinks every day (one mixed drink with vodka). Denies current tobacco and other drug abuse Allergies: Denies Home medication: Aspirin 81 mg p.o. daily, amlodipine 10 mg p.o. daily, pantoprazole 40 mg p.o. daily nebivolol 5 mg p.o. daily, simvastatin 20 mg p.o. daily, allopurinol 100 mg p.o. daily, multivitamins. PCP: Dr. Smith Patient seen and examined at bedside. Currently has no new complaints. Complementary workup: EKG: Sinus bradycardia at 50 beats per minute, rest within normal limits Chest x-ray: No acute cardiopulmonary disease Echocardiogram: LVEF 55%, grade 1 diastolic dysfunction, RVSP 45 mmHg, aortic valve is thickened and calcified, there is moderate aortic valve stenosis with peak gradient 54 mmHg and mean gradient of 24 mmHg Telemetry: Sinus bradycardia Objective vital signs Vital Sign Date Time Temp Pulse Resp B/P (MAP) Pulse Ox O2 Delivery O2 Flow Rate FiO2 06/22/24 09:18 159/64 06/22/24 09:00 97.8 54 18 97 97.8 06/22/24 08:00 Room Air* 0 21 Total Intake and Output 06/21/24 06/21/24 06/22/24 15:00 23:00 07:00 Intake Total 300 ml 300 ml Output Total 0 ml Balance 300 ml 300 ml medications Current Medications Medications Dose Ordered Sig/Bhupinder Route Start Time Stop Time Status Last Admin Dose Admin Sodium Chloride 10 ml Q8HR IV 06/21/24 06:00 06/22/24 05:41 10 ML Acetaminophen 325 mg Q4HP PRN PO 06/20/24 23:00 Enoxaparin Sodium 40 mg DAILY SC 06/20/24 23:15 06/20/24 23:15 40 MG Hydralazine HCl 10 mg Q6HP PRN IV 06/21/24 00:00 06/21/24 22:06 10 MG Amlodipine Besylate 10 mg DAILY PO 06/22/24 10:00 06/22/24 09:18 10 MG Aspirin 81 mg DAILY PO 06/22/24 10:00 06/22/24 09:18 81 MG Pantoprazole Sodium 40 mg DAILY PO 06/22/24 10:00 06/22/24 09:18 40 MG Atorvastatin Calcium 10 mg DAILY PO 06/22/24 10:00 06/22/24 09:18 10 MG Examination Patient lying in bed, in no acute distress General: Lucid, afebrile, mucosae are moist Cardiovascular: Normal S1 and S2. Objective systolic murmur best heard in aortic fossae intensity 2/6. No gallops or rubs Respiratory: Normal ventilation mechanics. Clear lung sounds on auscultation Abdomen: Soft, nontender, no organomegaly, normal bowel sounds MSK/skin: Mobilizes 4 limbs. Skin is dry and warm Neurological: Oriented in 3 spheres. No motor no sensitive deficits. Pupils are isocoric and reactive laboratory and microbiology Laboratory Tests 06/22/24 04:19 06/21/24 06:13 Test 06/22/24 04:19 Range/Units Serum Glucose 99 74-106 mg/dL Problem List/Assessment/Plan Problem List/Assessment/Plan Assessment Symptomatic bradycardia Moderate aortic stenosis CKD stage 3 Hypertension Dyslipidemia Plan/Recommendation Patient should continue with telemetry status, we will evaluate presence of arrhythmias may require pacemaker placement. Currently on telemetry only presented episodes of sinus bradycardia at 50 beats per minute. Avoid negative chronotropic medication. Patient will also Nebivolol at home, we will most likely have to discontinue beta-lane Avoid nephrotoxic medication On hydralazine for blood pressure control Discussed plan with Dr. Topete, patient, family and nurses: Telemetry after 48 hours only show sinus bradycardia with lowest heart rate at 49 beats per minute, patient is currently asymptomatic. We will recommend event monitor as outpatient. Avoid negative chronotropic medication (discontinued and available). To control blood pressure we will indicated nifedipine. Patient hemodynamically stable, asymptomatic, we are signing off of case during this admission, no interventions needed. Have advised patient to follow up with Cardiology due to Holter monitor and control of his aortic stenosis. Please reconsult if needed, thank you. Plan discussed with: Patient, Other My Orders My Orders Orders - STANISLAW BLUM Procedure Category Date Status Time Drug Screen LAB 06/21/24 Logged 10:06 Cardiac DIET 06/21/24 Transmitted Diet-2gna,Lofat,Lochol Lunch Visit Coding Cardiology RES Date of Service: Jun 22, 2024 Billing Provider: JAYANT TOPETE MD Cardiology Common Codes: [id number] HOSP CARE(High, [id number] CARE 30-74 MIN STANISLAW BLUM RESIDENT Jun 22, 2024 10:09
[2024-06-22] MEDS: NIFEdipine ER 30 MG TAB PO ONE (13:36)
[2024-06-22] MEDS ORDERED: NIFE1TAB30 PO (18:30)
--- NOTE | 2024-06-22 20:30 | DVHDSRES ---
Discharge Summary Date of Admission Resident Creating Document: YUKI PEARL Jun 20, 2024 at 22:57 Date of Discharge: Jun 22, 2024 Admitting Diagnosis Symptomatic sinus bradycardia Labs/Diagnostic Data: Laboratory Results Test 06/22/24 04:19 06/21/24 12:36 06/21/24 06:13 06/20/24 20:55 Sodium Level 139 mmol/L (136-145) Potassium Level 4.2 mmol/L (3.5-5.1) Chloride Level 107 mmol/L (98-107) Carbon Dioxide Level 24 mmol/L (20-31) Anion Gap 8 (5-15) Blood Urea Nitrogen 18 mg/dL (9-23) Creatinine 1.95 mg/dL (0.700-1.30) Glomerular Filtration Rate Calc 34 mL/min (>90) BUN/Creatinine Ratio 9.2 (10.0-20.0) Serum Glucose 99 mg/dL (74-106) Calcium Level 9.8 mg/dL (8.7-10.4) Influenza Type A Antigen Negative (Negative) Influenza Type B Antigen Negative (Negative) SARS-CoV-2 Antigen (Rapid) Negative (NEGATIVE) White Blood Count 6.1 10^3/uL (4.4-10.8) Red Blood Count 3.97 10^6/uL (4.5-5.90) Hemoglobin 13.6 g/dL (13.5-17.5) Hematocrit 38.8 % (41.0-53.0) Mean Corpuscular Volume 97.9 fL (80.0-100.0) Mean Corpuscular Hemoglobin 34.3 pg (28.0-32.0) Mean Corpuscular Hemoglobin Concent 35.1 g/dL (32.0-36.0) Red Cell Distribution Width 13.0 % (11.8-14.3) Platelet Count 205 10^3/uL (140-450) Mean Platelet Volume 7.3 fL (6.9-10.8) Neutrophils (%) (Auto) 62.4 % (37.0-80.0) Lymphocytes (%) (Auto) 22.5 % (10.0-50.0) Monocytes (%) (Auto) 8.7 % (0.0-12.0) Eosinophils (%) (Auto) 5.7 % (0.0-7.0) Basophils (%) (Auto) 0.7 % (0.0-2.0) Neutrophils # (Auto) 3.8 10 ^3/uL (1.6-8.6) Lymphocytes # (Auto) 1.4 10 ^3/uL (0.4-5.4) Monocytes # (Auto) 0.5 10 ^3/uL (0-1.3) Eosinophils # (Auto) 0.4 10 ^3/uL (0-0.8) Basophils # (Auto) 0 10 ^3/uL (0-0.2) Nucleated Red Blood Cells 0.0 % Phosphorus Level 3.5 mg/dL (2.4-5.1) Magnesium Level 1.9 mg/dL (1.6-2.6) Total Bilirubin 0.6 mg/dL (0.2-1.0) Aspartate Amino Transferase (AST) 10 U/L (13-40) Alanine Aminotransferase (ALT) 12 U/L (7-40) Alkaline Phosphatase 59 U/L (46-116) B-Type Natriuretic Peptide 168.47 pg/mL (0-100) Total Protein 6.4 g/dL (5.7-8.2) Albumin 4.1 g/dL (3.2-4.8) Vitamin B12 Level 1456 pg/mL (211-911) Vitamin D 25-Hydroxy 66.3 ng/mL (30.0-100) Plasma/Serum Blood Alcohol < 3.0 mg/dL (<10) Urine Color Light-yellow (Yellow) Urine Clarity Clear (Clear) Urine pH 6.0 (5.0-9.0) Urine Specific [place] 1.013 (1.001-1.035) Urine Protein 2+ (Negative) Urine Ketones Negative (Negative) Urine Blood Negative /uL (Negative) Urine Nitrite Negative (Negative) Urine Bilirubin Negative (Negative) Urine Urobilinogen Normal mg/dL (Negative) Urine Leukocyte Esterase Negative /uL (Negative) Urine RBC 1 /hpf (0 - 3) Urine WBC <1 /hpf (0 - 3) Urine Squamous Epithelial Cells None seen /hpf (<5) Urine Bacteria None seen /hpf (None Seen) Urine Glucose Normal mg/dL (Normal) Test 06/20/24 20:53 06/20/24 20:03 Troponin I High Sensitivity 10 ng/L (</=54) Thyroid Stimulating Hormone (TSH) 2.49 uIU/mL (0.55-4.78) Hemoglobin A1c 5.1 % A1C (<5.7) Other Laboratory Tests 06/22/24 04:19 06/21/24 06:13 Brief Hx & Hospital Course: This is an 84-year-old male with a past medical history of hypertension, hyperlipidemia, and chronic kidney disease (CKD) who presented to the ED with a chief complaint of generalized weakness. The patient states he was in his garage, working by his car, and had a hard time getting up due to feeling weak. He called EMS. EMS arrived and noted his heart rate was dropping into the 30s. The patient states his typical heart rate is in the 60s. He denies any chest pain, shortness of breath, dizziness, diaphoresis, abdominal pain, nausea, vomiting, or any change in bowel or bladder habits. The patient was admitted for evaluation of symptomatic bradycardia. PCP: Dr. Smith Physical Science Technician: Dr. 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 An echocardiogram showed moderate aortic valve stenosis, grade 1 diastolic dysfunction with an EF of 55%. Cardiology evaluated the patient and recommended outpatient follow-up for a Holter monitor and aortic stenosis. On 06/22/2024, the patient improved with no symptoms, and vitals were within normal limits except for sinus bradycardia. The discharge plan was discussed with the patient, recommending follow-up with the PCP within 1 week and Cardiology on an outpatient basis. Nebivolol was stopped, and nifedipine was prescribed for blood pressure management. Condition at Discharge: Good Final Diagnosis/Problems List Symptomatic bradycardia Hypertensive urgency Acute on chronic diastolic heart failure Hyperlipidemia Moderate aortic stenosis Hyperchloremia Discharge Disposition: Home Discharge Instruct/Medications Diet: Cardiac 2g Na,low cholest Activity: No Restrictions, As Tolerated Follow Up/Referral: follow up wih the cardiology for the aotic stenosis and holter monitor follow up with PCP within one week after discharge Medications: stop nebivulolol start nefidipine for BP continue the rest of home medication Discharge Statement: "Patient was advised to return to the ER or call 911 if any headaches, dizziness, shortness of breath, chest pain, abdominal pain, bleeding, fevers, or worsening of medical condition. Patient was counseled about treatment plan, medications, possible side effects, patientverbalized understanding. All questions were answered to the best of my ability. This discharge took greater then 30 minutes in planning, reviewing documentation, counseling the patient, and discussing with other team members." ASSESSMENT ASSESSMENT Assessment symptomatic bradycardia Date of Service: Jun 22, 2024 Billing Provider: LATOYA HERRERA MD Common Visit Codes: [id number] INP/OBS CARE(MOD) YUKI PEARL Jun 22, 2024 20:30 LATOYA HERRERA MD Jun 23, 2024 09:43
[2024-06-23] MEDS ORDERED: NIFEdipine ER 30 MG TAB PO SCH (10:00)
== END 2024-06-22 20:15 | disposition home or self-care (01) | DRG 291 ==
LOC: ER 19:47 → EDBD 19:47 → TELE 22:57 → TELE-WESTW 23:00
PROVIDERS: ADMIT Internal Medicine; ATTEND Internal Medicine
DX: I13.0 Hypertensive heart and chronic kidney disease with heart failure and stage 1 through stage 4 chronic kidney disease, or unspecified chronic kidney disease (principal); I50.33 Acute on chronic diastolic (congestive) heart failure; N17.9 Acute kidney failure, unspecified; I16.0 Hypertensive urgency; E78.5 Hyperlipidemia, unspecified; I35.0 Nonrheumatic aortic (valve) stenosis; N18.30 Chronic kidney disease, stage 3 unspecified; E87.8 Other disorders of electrolyte and fluid balance, not elsewhere classified; Z95.0 Presence of cardiac pacemaker; Z79.899 Other long term (current) drug therapy; R00.1 Bradycardia, unspecified
CPT/HCPCS: 36415; 71045; 76775; 80048; 80053; 80320; 81001; 82306; 82607; 83036; 83735; 83880; 84100; 84443; 84484; 85025; 87426; 87804; 93005; 93306; 93970; G0378

== ENCOUNTER 2025-06-19 18:07 | Emergency (ER) | payer MEDICARE, OTHER ==
[~2025-06-19] VITALS: Ht 177.8 cm; Wt 80.0 kg
[~2025-06-19 18:07] MED LIST changes: +ASPI-543 PO; +NIFE1TAB30 PO; +PANT40TA2 PO; +SIMV20TA20 PO; +SODI650T PO
[2025-06-19] MEDS: LIDOCAINE W/ EPINEPHRINE 2% INJ 20ML VIAL IJ ONE (19:30)
[2025-06-19] MEDS: LIDOCAINE W/ EPINEPHRINE 2% INJ 20ML VIAL ONE (19:30)
[2025-06-19 19:32] VITALS: BP 172/91; PULSE 65; RESP 18; TEMP 98.3; O2SAT 97
--- NOTE | 2025-06-19 20:00 | ED.PDOC ---
HPI Comments 85-year-old male presents to ER with complaints of puncture wound to scalp x1 day. Patient presents [facility] reporting that a "palm tree thorn scraped" along his scalp at 4:30 p.m. today when he was trimming his palm trees at home and sustained a small puncture wound to frontal scalp at that time. Patient presents to ER with a small 1 cm puncture wound noted to frontal scalp with active bleeding. Patient also endorses 2/10 frontal headache and presents to ER ambulatory on arrival, alert and oriented x4, in no distress. Denies n/v, numbness/tingling, dizziness, trauma, neck pain or any further sympto ms/complaints Chief Complaint: Laceration Time Seen by MD: 18:30 Primary Care Provider: UNKNOWN Reviewed Notes: Nurses Notes, Medications, Allergies Allergies: Coded Allergies: NO KNOWN ALLERGIES (Unverified , 06/20/24) Home Meds Active Scripts Nifedipine (Nifedipine Er) 60 Mg Tab, 1 TAB PO DAILY, #30 TAB 5 Refills Prov:JESSENIA STUART RESIDENT 06/22/24 Reported Medications Losartan Potassium (Losartan Potassium) 25 Mg Tab, 1 TAB PO BID for 90 Days, #180 06/22/24 Aspirin (Aspir-Low) 81 Mg Tab, 81 MG PO DAILY for 30 Days, MG 06/21/24 Sodium Bicarbonate (Sodium Bicarbonate) 650 Mg Tab, 650 MG PO BID, TAB 06/21/24 Simvastatin (Simvastatin) 20 Mg Tab, 20 MG PO DAILY for 30 Days 06/21/24 Pantoprazole Sodium Sesquihydr (Protonix) 40 Mg Tab, 40 MG PO DAILY, #30 TAB 06/21/24 Information Source: Patient Mode of Arrival: EMS Complexity: Simple Last Tetanus: UTD Laceration Length (cm): 1 Past Medical History PAST MEDICAL HISTORY: HTN Surgical History: Denies all surgeries Family History Family History: Unknown Social History Smoker: Non-Smoker Alcohol: Denies ETOH Use Drugs: Denies Drug Use Lives In: Home Constitutional: denies: chills, diaphoresis, fatigue, fever, malaise, sweats, weakness, others EENTM: denies: blurred vision, double vision, ear bleeding, ear discharge, ear drainage, ear pain, ear ringing, eye pain, eye redness, hearing loss, mouth pain, mouth swelling, nasal discharge, nose bleeding, nose congestion, nose pain, photophobia, tearing, throat pain, throat swelling, voice changes, others Respiratory: denies: cough, hemoptysis, orthopnea, SOB at rest, shortness of breath, SOB with excertion, stridor, wheezing, others Cardiovascular: denies: chest pain, dizzy spells, diaphoresis, Dyspnea on exertion, edema, irregular heart beat, left arm pain, lightheadedness, palpitations, PND, syncope, others Gastrointestinal: denies: abdomen distended, abdominal pain, blood streaked bowels, constipated, diarrhea, dysphagia, difficulty swallowing, hematemesis, melena, nausea, poor appetite, poor fluid intake, rectal bleeding, rectal pain, vomiting, others Genitourinary: denies: burning, dysuria, flank pain, frequency, hematuria, incontinence, penile discharge, penile sore, pain, testicle pain, testicle swelling, urgency, others Neurological: reports: others (As stated in HPI) Musculoskeletal: denies: back pain, gout, joint pain, joint swelling, muscle pain, muscle stiffness, neck pain, others Integumetry: reports: others (As stated in HPI) Allergic/Immunocompromised: denies: Difficulty Healing, Frequent Infections, Hives, Itching, others Hematologic/Lymphatic: denies: anemia, blood clots, easy bleeding, easy bruising, swollen glands, others Endocrine: denies: excessive hunger, excessive sweating, excessive thirst, excessive urination, flushing, intolerance to cold, intolerance to heat, unexplained weight gain, unexplained weight loss, others Psychiatric: denies: anxiety, bipolar disorder, depression, hopeless, panic dis order, schizophrenia, sleepless, suicidal, others Physical Exam General Appearance: No Apparent Distress HEENT: PERRL/EOMI, Pharynx Normal, TMs Normal, Other (1 cm puncture wound noted to frontal scalp with active bleeding. No further skin changes noted) Neck: Full Range of Motion, Non-Tender, Normal Respiratory: Chest Non-Tender, Lungs Clear, No Accessory Muscle Use, No Respiratory Distress, Normal Breath Sounds Cardiovascular: No Murmur, No Gallop, Regular Rate/Rhythm Breast Exam: Deferred Gastrointestinal: NOT DONE Genitalia: Deferred Pelvic: Deferred Rectal: Deferred Extremities: Normal capillary refill, Normal range of motion Neurologic: Alert (GCS 15), medical coder II-XII nml as Tested, No Motor Deficits, Normal Affect, Normal Mood, No Sensory Deficits Cerebellar Function: Normal Reflexes: Normal Skin: Dry, Warm Peripheral Pulses: 2+ Radial (R), 2+ Radial (L), 2+ Brachial (R), 2+ Brachial (L) Lymphatic: No Adenopathy Was a procedure done? Was a procedure done?: Yes Sedation Sedation?: No Laceration Repair : Location Puncture wound of scalp Length 1 cm Anesthetic: Lidocaine (1%), With epi Laceration Repair Prep: Saline, Betadine, by Irrigation (without any signs of foreign body) Laceration Repair Wound Comple: epidermis/dermis repair Laceration Repair: Number of sutures (3 placed - patient tolerated well without any complication), Size (5-0), Nylon, Simple, Non-adherent gauze Informed consent obtained: Yes Risks, benefits, and alternati: Yes Differential diagnosis Generic Laceration: Fracture, Retained Foriegn Body, Neurovascular Injury Differential Diagnosis: Other (Subdural hematoma, subarachnoid hemorrhage) X-Ray, Labs, Meds, VS Vital Signs Date Time Temp Pulse Resp B/P (MAP) Pulse Ox O2 Delivery O2 Flow Rate FiO2 06/19/25 19:32 98.3 65 18 172/91 (118) 97 98.3 06/19/25 19:32 Room Air* 0 21 06/19/25 18:20 98.3 65 18 172/91 97 98.3 Current Medications Medications (Trade) Dose Ordered Sig/Bhupinder Route Start Time Stop Time Status Last Admin Lidocaine/ Epinephrine (Lidocaine/ Epinephrine 2% Inj) 20 ml ONCE ONCE IJ 06/19/25 19:30 06/19/25 19:31 DC 06/19/25 19:30 PATIENT: IDALMIS CANALES: [id number]: [id number] : 1940 LOC: ER ROOM / BED: / AGE / SEX: 85 / M ADM STATUS: REG ER SERVICE 14 ORDERING PHYSICIAN: RUI MARTÍNEZ PROCEDURE(s): HWOCT - HEAD WITHOUT CONTRAST REASON: headache ORDER NUMBER(s): [id number], ACCESSION NUMBER(s): [id number] CLINICAL HISTORY: headache TECHNIQUE: Helical scanning was performed of the head from the skull base to the vertex. Multiplanar reconstructions were performed. This exam was performed according to our departmental dose optimization program. Up-to-date CT equipment and radiation dose reduction techniques are utilized as appropriate. CTDI 58 DLP 982 COMPARISON: None FINDINGS: There is no evidence for acute intracranial hemorrhage, acute ischemic changes, mass, mass effect, or extra-axial fluid collection. There is no hydrocephalus or midline shift. There is no effacement of the cerebral sulci and basal subarachnoid cisterns. The colvin-white matter differentiation is well maintained. The imaged paranasal sinuses are clear. There has been bilateral cataract extraction. The sella appears empty. IMPRESSION: NO ACUTE INTRACRANIAL ABNORMALITY SEEN. ATED BY: DAQUAN WOODARD MD DICTATED DATE/TIME: 06/19/252000 SIGNED BY: DAQUAN WOODARD MD SIGNED DATE/TIME: 06/19/252000 CC: CT head without contrast reviewed Patient reported a in symptoms, bleeding controlled, denied any headache and in no distress prior to discharge Wound care/cleaning discussed and advised Advised to f/u in 2 days for wound check Advised to follow up in 5-7 days for removal of sutures Advised to follow up with PCP in 1-2 days Patient verbalized understanding and agreeable with current plan of care Advised to return to ER immediately if symptoms worsen Time of 1ST Reevaluation: 19:24 Reevaluation 1ST: N/A Patient Education/Counseling: Diagnosis, Treatment, Prognosis, Need For Follow Up Family Education/Counseling: No Family Present Departure 1 Departure Time of Disposition: 19:58 Impression: Primary Impression: Puncture wound of scalp Qualified Codes: S01.03XA - Puncture wound without foreign body of scalp, initial encounter Disposition: 01 HOME / SELF CARE / HOMELESS Condition: Stable Discharged With: Self Critical Care Note Critical Care Time?: No Stability Stability form required: No Heart Score Heart Score: Heart Score Response (Comments) Value History N/A 0 EKG N/A 0 Age N/A 0 Risk Factors N/A 0 Troponin N/A 0 Total 0 RUI MARTÍNEZ Jun 19, 2025 20:00
--- NOTE | 2025-06-19 20:03 | DVH ---
CLINICAL HISTORY: headache TECHNIQUE: Helical scanning was performed of the head from the skull base to the vertex. Multiplanar reconstructions were performed. This exam was performed according to our departmental dose optimizat ion program. Up-to-date CT equipment and radiation dose reduction techniques are utilized as appropri ate. CTDI 58 DLP 982 COMPARISON: None FINDINGS: There is no evidence for acute intracranial hemorrhage, acute ischemic changes, mass, mass effect, or extra-axial fluid collection. There is no hydrocephalus or midline shift. There is no effacement of the cerebral sulci and basal subarachnoid cisterns. The colvin-white matter differentiation is well radha ntained. The imaged paranasal sinuses are clear. There has been bilateral cataract extraction. The sella appea rs empty. IMPRESSION: NO ACUTE INTRACRANIAL ABNORMALITY SEEN.
== END 2025-06-19 20:25 | disposition home or self-care (01) ==
LOC: EDBD 18:07 → ER 18:11
DX: S01.03XA Puncture wound without foreign body of scalp, initial encounter (principal); I10 Essential (primary) hypertension; Z79.899 Other long term (current) drug therapy; Z79.82 Long term (current) use of aspirin; X58.XXXA Exposure to other specified factors, initial encounter; Y93.89 Activity, other specified; Y92.89 Other specified places as the place of occurrence of the external cause; Y99.8 Other external cause status
CPT/HCPCS: 12001; 70450